=== PATIENT | female | born 1955 | race African-American/Black ===

== ENCOUNTER 2019-05-06 | Emergency (ER) | payer OTHER ==
[~2019-05-06] MED LIST: CEPHALEXIN500 MG OR; GLUMETZA1000 MG OR; LORTAB 5 OR; MAALOX MAX OR; METFORMIN HCL1000 MG PO; METOPROLOL SUCC25 MG PO; MINIVELLE0.05 MG PO; MOTRIN800 MG PO; PANTOPRAZOLE SO40 M1 PO; PHENTERMINE H37.5 M1 PO; SILVADENE1 % EX; TRAMADOL HCL50 MG PO
[2019-05-06] MEDS ORDERED: LOSARTAN POTASS50 MG PO (11:26)
[2019-05-06] MEDS ORDERED: ASPIRIN325 MG PO (11:26)
[2019-05-06] MEDS ORDERED: TRULICITY1.5 MG/0.5 SC (11:27)
[2019-05-06 12:42] LABS: HEMATOCRIT 41.3 % (37.0-47.0); HEMOGLOBIN 12.6 g/dl (12.0-16.0); IMMATURE GRANULOCYTES 0.3 % (0.0-5.0); MEAN CELL VOLUME 85.7 fL CALC (80.0-100.0); MEAN CORPUSCULAR HGB 26.1 pG CALC (26.0-32.0); MEAN CORPUSCULAR HGB CONC 30.5 g/L CALC (32.0-36.0); NEUT# 5.38 thou/uL (2.00-7.15); RED BLOOD COUNT 4.82 mill/uL (4.20-5.60); RED CELL DISTRI WIDTH 13.7 % (11.5-15.5)
[2019-05-06 12:58] LABS: PROTHROMBIN TIME 10.3 SECONDS (9.0-12.5)
[2019-05-06 12:59] LABS: ALBUMIN 4.2 g/dL (3.2-5.0); ALKALINE PHOSPHATASE 65 u/l (38-126); ANION GAP 13 (6-22 (CALC)); BILIRUBIN, TOTAL 0.3 mg/dL (0.0-1.4); BUN 12 mg/dL (8-23); BUN/CREATININE RATIO 19 (12-20 (CALC)); CARBON DIOXIDE 21 mmol/l (22-30); CHLORIDE 111 mmol/l (95-108); CREATININE 0.6 mg/dL (0.5-1.0); GFR > 60 ML/MIN (>=60 (CALC)); GFR FOR AFR.AMER. > 60 ML/MIN (>=60 (CALC)); POTASSIUM 4.7 mmol/l (3.5-5.1); SGOT/AST 25 u/l (9-36); SODIUM 140 mmol/l (137-146)
[2019-05-06 13:55] LABS: URINE BILIRUBIN - DIPSTICK NEGATIVE (NEGATIVE); URINE BLOOD DIPSTICK NEGATIVE (NEGATIVE); URINE COLOR YELLOW; URINE GLUCOSE - DIPSTICK NEGATIVE (NEGATIVE); URINE KETONE NEGATIVE (NEGATIVE); URINE LEUK ESTERASE TRACE (NEGATIVE); URINE NITRITE - DIPSTICK NEGATIVE (Negative); URINE PROTEIN - DIPSTICK NEGATIVE (NEG-TRACE); URINE UROBILINOGEN - DIPSTICK 0.2 E.U./dL (0.2)
== END 2019-05-06 16:27 | disposition home or self-care (01) | DRG 149 ==
DX: R42 Dizziness and giddiness (principal); I10 Essential (primary) hypertension; E11.9 Type 2 diabetes mellitus without complications
CPT/HCPCS: Q9967

== ENCOUNTER 2021-03-26 08:51 | Day surgery (SDC) | payer BC ==
[~2021-03-26] VITALS: Ht 154.9 cm; Wt 96.6 kg
[~2021-03-26 08:51] MED LIST changes: +ASPIRIN325 MG PO; +ASPIRIN81 MG PO; +BIOTIN1000 MCG PO; +CALCIUM500 M5 PO; +DRISDOL50000 UNIT SC; +EZALLOR SPRINKLE5 MG PO; +GABAPENTIN100 MG PO; +LISINOPRIL20 MG PO; +LOSARTAN POTASS50 MG PO; +OMEGA 31000 MG PO; +OMEPRAZOLE DR40 MG PO; +PROAIR HFA108 MCG/AC; +TRULICITY1.5 MG/0.5 SC; +VITAMIN E400 UNIT PO; +VOLTAREN - GENE75 MG XX
[2021-03-26 11:30] VITALS: BP 84/52
== END 2021-03-26 11:17 | disposition home or self-care (01) | DRG 951 ==
LOC: ENDO 08:51 → ORM 10:15 → ENDO 11:17
PROVIDERS: ATTEND Surgery
PROC: 0DJD8ZZ Inspection of Lower Intestinal Tract, Via Natural or Artificial Opening Endoscopic (ICD-10-PCS; principal; 2021-03-26)
PROC: 0DJ08ZZ Inspection of Upper Intestinal Tract, Via Natural or Artificial Opening Endoscopic (ICD-10-PCS; 2021-03-26)
DX: Z12.11 Encounter for screening for malignant neoplasm of colon (principal); K57.30 Diverticulosis of large intestine without perforation or abscess without bleeding; K64.8 Other hemorrhoids; K21.9 Gastro-esophageal reflux disease without esophagitis; E11.9 Type 2 diabetes mellitus without complications; I10 Essential (primary) hypertension; E78.5 Hyperlipidemia, unspecified